=== PATIENT | female | born 1960 | race Caucasian/White ===

== ENCOUNTER 2018-01-11 06:52 | Emergency (ER) | payer MEDICAID ==
[~2018-01-11] VITALS: Ht 152.4 cm; Wt 79.8 kg
[2018-01-11] MEDS ORDERED: DEXAMETHASONE 4 MG TABLET ONE (07:23)
[2018-01-11] MEDS ORDERED: DEXAMETHASONE 4 MG TABLET PO ONE (07:30)
[2018-01-11] MEDS ORDERED: HYDROcodone/APAP 5/325 TABLET ONE (08:42)
[2018-01-11] MEDS ORDERED: HYDROcodone/APAP 5/325 TABLET PO ONE (09:00)
[2018-01-11 10:25] VITALS: BP 215/93
== END 2018-01-11 10:27 | disposition home or self-care (01) ==
LOC: ED 08:22
DX: S22.31XA Fracture of one rib, right side, initial encounter for closed fracture (principal); R07.89 Other chest pain; Z87.891 Personal history of nicotine dependence; X58.XXXA Exposure to other specified factors, initial encounter; Y93.89 Activity, other specified; Y92.89 Other specified places as the place of occurrence of the external cause; Y99.8 Other external cause status
CPT/HCPCS: 71046; 99284

== ENCOUNTER 2018-01-17 08:00 | Emergency (ER) | payer MEDICAID ==
[~2018-01-17] VITALS: Ht 152.4 cm; Wt 75.7 kg
[2018-01-17] MEDS ORDERED: INSU100V8 SQ (08:16)
[2018-01-17] MEDS ORDERED: ATEN50TA41 PO (08:16)
[2018-01-17] MEDS ORDERED: CLON0.3T4 PO (08:16)
[2018-01-17] MEDS ORDERED: GABA600T2 PO (08:17)
[2018-01-17] MEDS ORDERED: LEVE500T53 PO (08:17)
[2018-01-17] MEDS ORDERED: ONDANSETRON ODT 4 MG ONE (08:38)
[2018-01-17] MEDS ORDERED: OXYcodone/APAP 5/325MG TABLET PO ONE (09:00)
[2018-01-17] MEDS ORDERED: ONDANSETRON ODT 4 MG PO ONE (09:00)
[2018-01-17 09:05] LABS: BASOPHILS # (AUTO) 0.03 x10^3/uL (0-0.1); BASOPHILS % (AUTO) 0 % (0-1); EOSINOPHILS # (AUTO) 0.03 x10^3/uL (0-0.4); EOSINOPHILS % (AUTO) 0 % (1-7); LYMPHOCYTES # (AUTO) 2.63 x10^3/uL (1-3.4); LYMPHOCYTES % (AUTO) 22 % (22-44); MD NO; MEAN CORPUSCULAR HEMOGLOBIN 32.9 pg (27.0-34.8); MEAN CORPUSCULAR HGB CONC 34.1 g/dL (32.4-35.8); MEAN CORPUSCULAR VOLUME 96.4 fL (80-100); MEAN PLATELET VOLUME 8.7 fL (7.4-10.4); MONOCYTES # (AUTO) 0.45 x10^3/uL (0.2-0.8); MONOCYTES % (AUTO) 4 % (2-9); NEUTROPHILS # (AUTO) 9.06 x10^3/uL (1.8-6.8); NEUTROPHILS % (AUTO) 74 % (42-75); PLATELET COUNT 236 x10^3/uL (130-400); RED BLOOD COUNT 4.51 x10^6/uL (3.82-5.3); RED CELL DISTRIBUTION WIDTH 13.1 % (9.6-15.2)
[2018-01-17 09:12] LABS: ALBUMIN 3.7 g/dL (3.4-5.0); ANION GAP 11 mmol/L (5-15); CALCIUM 9.4 mg/dL (8.5-10.1); CHLORIDE 101 mmol/L (98-107); CREATININE 0.97 mg/dL (0.55-1.02)
[2018-01-17] MEDS ORDERED: OXYcodone/APAP 5/325MG TABLET ONE (09:13)
[2018-01-17] MEDS ORDERED: PROMETHAZINE 25 MG/ML, 1ML IM ONE (10:30)
[2018-01-17] MEDS ORDERED: PROMETHAZINE 25 MG/ML, 1ML ONE (10:45)
[2018-01-17 11:40] VITALS: BP 118/65
== END 2018-01-17 11:42 | disposition home or self-care (01) ==
LOC: ED 09:07
DX: G43.C0 Periodic headache syndromes in child or adult, not intractable (principal); I10 Essential (primary) hypertension
CPT/HCPCS: 36415; 70450; 80048; 82040; 85025; 93005; 96372; 99285; J2550; Q0162

== ENCOUNTER 2018-01-26 03:18 | Observation (INO) | payer MEDICAID ==
[~2018-01-26] VITALS: Ht 152.4 cm; Wt 80.5 kg
[~2018-01-26 03:18] MED LIST: ATEN50TA41 PO; CLON0.3T4 PO; GABA600T2 PO; INSU100V8 SQ; LEVE500T53 PO
[2018-01-26] MEDS ORDERED: ACETAMINOPHEN 325 MG TABLET ONE (03:43)
[2018-01-26 03:52] LABS: BASOPHILS # (AUTO) 0.03 x10^3/uL (0-0.1); BASOPHILS % (AUTO) 1 % (0-1); EOSINOPHILS % (AUTO) 3 % (1-7); LYMPHOCYTES # (AUTO) 2.02 x10^3/uL (1-3.4); LYMPHOCYTES % (AUTO) 30 % (22-44); MD NO; MEAN CORPUSCULAR HEMOGLOBIN 32.4 pg (27.0-34.8); MEAN CORPUSCULAR HGB CONC 33.7 g/dL (32.4-35.8); MEAN CORPUSCULAR VOLUME 96.3 fL (80-100); MEAN PLATELET VOLUME 8.8 fL (7.4-10.4); MONOCYTES # (AUTO) 0.83 x10^3/uL (0.2-0.8); MONOCYTES % (AUTO) 12 % (2-9); NEUTROPHILS # (AUTO) 3.75 x10^3/uL (1.8-6.8); NEUTROPHILS % (AUTO) 55 % (42-75); PLATELET COUNT 179 x10^3/uL (130-400); RED BLOOD COUNT 4.17 x10^6/uL (3.82-5.3); RED CELL DISTRIBUTION WIDTH 13.6 % (9.6-15.2)
[2018-01-26 04:00] LABS: ALBUMIN 3.3 g/dL (3.4-5.0); ANION GAP 10 mmol/L (5-15); CALCIUM 9.1 mg/dL (8.5-10.1); CHLORIDE 103 mmol/L (98-107); CREATININE 0.78 mg/dL (0.55-1.02)
[2018-01-26] MEDS ORDERED: ACETAMINOPHEN 325 MG TABLET PO ONE (04:00)
[2018-01-26] MEDS ORDERED: NITROGLYCERIN SINGLE TAB 0.4 MG SL PRN (04:00)
[2018-01-26 04:04] LABS: TROPONIN I < 0.015 ng/mL (0.000-0.045)
[2018-01-26] MEDS ORDERED: ONDANSETRON ODT 4 MG ONE (04:17)
[2018-01-26] MEDS ORDERED: ONDANSETRON ODT 4 MG PO ONE (04:30)
[2018-01-26] MEDS ORDERED: SODIUM CHLORIDE 0.9% 1,000 ML IV SCH (05:10)
[2018-01-26] MEDS ORDERED: INSULIN GLARGINE 100 UNITS/ML, PEN SQ-INSULIN SCH (05:30)
[2018-01-26] MEDS ORDERED: ONDANSETRON ODT 4 MG PO PRN (05:30)
[2018-01-26] MEDS ORDERED: POLYETHYLENE GLYCOL 17 GM PACKET PO PRN (05:30)
[2018-01-26] MEDS ORDERED: hydrALAzine 20 MG/ML, 1ML IVPush PRN (05:30)
[2018-01-26] MEDS ORDERED: ONDANSETRON 2MG/ML, 2ML IVPush PRN (05:30)
[2018-01-26] MEDS ORDERED: ACETAMINOPHEN 325 MG TABLET PO PRN (05:30)
[2018-01-26 05:36] VITALS: BP 147/86
[2018-01-26] MEDS ORDERED: PROMETHAZINE 25 MG/ML, 1ML IM PRN (07:00)
[2018-01-26] MEDS ORDERED: HYDROcodone/APAP 5/325 TABLET PO ONE (07:00)
[2018-01-26 07:28] VITALS: BP 164/94
[2018-01-26] MEDS ORDERED: REGADENOSON 0.4 MG/5 ML SYRINGE ONE (07:34)
[2018-01-26 08:33] LABS: TROPONIN I < 0.015 ng/mL (0.000-0.045)
[2018-01-26] MEDS ORDERED: GABAPENTIN 300 MG CAPSULE PO SCH (09:00)
[2018-01-26] MEDS ORDERED: ATENOLOL 50 MG TABLET PO SCH (09:00)
[2018-01-26] MEDS ORDERED: LEVETIRACETAM 500 MG TABLET PO SCH (09:00)
[2018-01-26] MEDS: INSULIN LISPRO 100 UNITS/ML, PEN SQ-INSULIN SCH ×2 (10:05→12:16)
[2018-01-26 14:00] VITALS: BP 112/71
[2018-01-26 14:43] LABS: HEMOGLOBIN A1C 9.9 % (4.2-6.3)
== END 2018-01-26 14:55 | disposition left against medical advice (07) ==
LOC: ED 03:44 → EDIP 04:34 → INTOOBSV 04:34 → 5SO 05:27
PROVIDERS: ADMIT Hospitalist; ATTEND Hospitalist
DX: R07.89 Other chest pain (principal); R06.09 Other forms of dyspnea; E11.40 Type 2 diabetes mellitus with diabetic neuropathy, unspecified; E11.65 Type 2 diabetes mellitus with hyperglycemia; I11.9 Hypertensive heart disease without heart failure; G40.909 Epilepsy, unspecified, not intractable, without status epilepticus; Z79.4 Long term (current) use of insulin; Z87.891 Personal history of nicotine dependence; Z86.73 Personal history of transient ischemic attack (TIA), and cerebral infarction without residual deficits; Z86.711 Personal history of pulmonary embolism; Z90.710 Acquired absence of both cervix and uterus; Z83.3 Family history of diabetes mellitus; Z82.49 Family history of ischemic heart disease and other diseases of the circulatory system
CPT/HCPCS: 36415; 71045; 78452; 80048; 82040; 82962; 83036; 83880; 84484; 85025; 85379; 93005; 93017; 96372; 99284; A9502; C9898; G0378; J1815; J2550; J2785; J7030; Q0162

== ENCOUNTER 2018-03-26 09:06 | Observation (INO) | payer MEDICAID, OTHER ==
[~2018-03-26] VITALS: Ht 152.4 cm; Wt 73.3 kg
[~2018-03-26 09:06] MED LIST changes: -GABA600T2 PO; +GABA600T7 PO
[2018-03-26] MEDS ORDERED: HYDROmorphone 1 MG/ML, 1ML IV ONE ×2 (09:30→11:30)
--- NOTE | 2018-03-26 09:40 | NUR ---
PT PRESENTED TO ED WITH HEADACHE SINE 2:00 THIS AM. PT A&OX4. PT WITH HX OF MULTIPLE ANEURYSMS.PT PLACED IN ROOM AND PLACED ON BP AND CONT. PULSE OXIMETER. ASSESSMENT COMPLETED. PAPERHANGER AND PAINTER AT BEDSIDE TO TAKE PT TO CT SCAN. PT STATED SHE IS ALLERGIC TO IODINE. MD AWARE AND PT THEN TAKEN TO CT SCAN WITHOUT IV CONTRAST.
--- NOTE | 2018-03-26 09:47 | NUR ---
Pt taken to CT.
--- NOTE | 2018-03-26 10:33 | NUR ---
UNABLE TO PLACE IV X 2. Addendum: 03/26/18 at 1120 by EKING md informed of high bp.
[2018-03-26] MEDS ORDERED: HYDROmorphone 2 MG/ML, 1ML ONE ×2 (11:11→14:35)
--- NOTE | 2018-03-26 11:18 | NUR ---
PT MEDICATED PER ORDER.
--- NOTE | 2018-03-26 11:21 | NUR ---
called MRI letting them know that pt is ready. He stated that he will be over in a bit.
--- NOTE | 2018-03-26 11:38 | NUR ---
PT VOMITED, CHARGE NURSE INFORMED .
[2018-03-26] MEDS ORDERED: METOPROLOL 1 MG/ML, 5ML ONE (11:44)
[2018-03-26] MEDS ORDERED: PROMETHAZINE 25 MG/ML, 1ML ONE (11:44)
--- NOTE | 2018-03-26 11:53 | NUR ---
PT MEDICATED PER ORDER.
[2018-03-26] MEDS ORDERED: PROMETHAZINE 25 MG/ML, 1ML IM ONE (12:00)
[2018-03-26] MEDS ORDERED: METOPROLOL 1 MG/ML, 5ML IVPush ONE (12:00)
--- NOTE | 2018-03-26 12:15 | NUR ---
Pt taken to MRI.
[2018-03-26 12:22] LABS: ALBUMIN 3.7 g/dL (3.4-5.0); ANION GAP 12 mmol/L (5-15); CALCIUM 9.8 mg/dL (8.5-10.1); CHLORIDE 105 mmol/L (98-107)
[2018-03-26 12:26] LABS: TROPONIN I < 0.015 ng/mL (0.000-0.045)
--- NOTE | 2018-03-26 12:44 | NUR ---
PT IS BACK FROM MRI. PT IS ALERT, ORIENTED, WITH NAD. PT IS CONNECTED TO THE MONITOR. CALL LIGHT WITHIN REACH.
[2018-03-26 12:45] LABS: MEAN CORPUSCULAR VOLUME 93.9 fL (80-100); MEAN PLATELET VOLUME 8.2 fL (7.4-10.4); PLATELET COUNT 232 x10^3/uL (130-400); RED BLOOD COUNT 4.82 x10^6/uL (3.82-5.3); RED CELL DISTRIBUTION WIDTH 13.8 % (9.6-15.2)
[2018-03-26 12:49] LABS: BASOPHILS % (AUTO) 2 % (0-1); EOSINOPHILS # (AUTO) 0.04 x10^3/uL (0-0.4); EOSINOPHILS % (AUTO) 0 % (1-7); LYMPHOCYTES # (AUTO) 3.26 x10^3/uL (1-3.4); LYMPHOCYTES % (AUTO) 30 % (22-44); MD SCAN; MONOCYTES % (AUTO) 13 % (2-9); NEUTROPHILS # (AUTO) 5.81 x10^3/uL (1.8-6.8); NEUTROPHILS % (AUTO) 54 % (42-75)
--- NOTE | 2018-03-26 13:18 | NUR ---
Hospitalist at bedside.
[2018-03-26] MEDS ORDERED: hydrALAzine 20 MG/ML, 1ML IVPush PRN (14:00)
[2018-03-26] MEDS ORDERED: POLYETHYLENE GLYCOL 17 GM PACKET PO PRN (14:00)
[2018-03-26] MEDS ORDERED: BISACODYL 10 MG SUPP PR PRN (14:00)
[2018-03-26] MEDS ORDERED: SUMATRIPTAN 25 MG TABLET PO PRN (14:00)
[2018-03-26] MEDS ORDERED: BUTALB/APAP/CAFFEINE 50MG/325MG/40MG PO PRN (14:00)
[2018-03-26] MEDS ORDERED: LABETALOL 5MG/ML, 20ML IVPush PRN (14:00)
[2018-03-26] MEDS ORDERED: DOCUSATE 100 MG CAPSULE PO PRN (14:00)
[2018-03-26] MEDS ORDERED: DEXTROSE 50%, 50ML SYRINGE IVPush PRN (14:00)
[2018-03-26] MEDS ORDERED: ACETAMINOPHEN 325 MG TABLET PO PRN (14:00)
[2018-03-26] MEDS ORDERED: ONDANSETRON ODT 4 MG PO PRN (14:00)
[2018-03-26] MEDS ORDERED: NS + 20MEQ KCL 1,000 ML IV SCH (14:00)
[2018-03-26] MEDS ORDERED: LIDODERM 5% PATCH TD PRN (14:00)
[2018-03-26] MEDS ORDERED: PERMETHRIN CRM 5%, 60GM TP SCH (14:00)
[2018-03-26] MEDS ORDERED: ENALAPRILAT 1.25 MG/ML, 2ML IVPush PRN (14:00)
[2018-03-26] MEDS ORDERED: DEXTROSE 4 GM TAB.CHEW PO PRN (14:00)
[2018-03-26] MEDS ORDERED: GLUCAGON 1 MG IM PRN (14:00)
[2018-03-26] MEDS ORDERED: ONDANSETRON 2MG/ML, 2ML IVPush PRN (14:00)
--- NOTE | 2018-03-26 14:25 | NUR ---
Pt is sitting in bed, picking of her scabs and throwing them on the floor. Pt is alert, oriented, with NAD. Pt is connected to the monitor. Call light within reach.
[2018-03-26] MEDS ORDERED: VALPROATE SODIUM 100 MG/ML, 5ML IV ONE (14:30)
[2018-03-26 14:38] LABS: HEMOGLOBIN A1C 10.2 % (4.2-6.3)
[2018-03-26] MEDS ORDERED: NS + 20MEQ KCL 1,000 ML IV ONE (14:46)
--- NOTE | 2018-03-26 15:03 | NUR ---
ASSUMED CARE OF PT WHILE PRIMARY RN ON LUNCH. PT AWAITING HOSPITAL BED. PT ON CONT. 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
--- NOTE | 2018-03-26 16:10 | NUR ---
REPORT GIVEN TO FABIO DEAL.
[2018-03-26 17:22] VITALS: BP 153/81
[2018-03-26 17:39] VITALS: BP 151/97
[2018-03-26] MEDS: GABAPENTIN 300 MG CAPSULE PO SCH ×2 (17:48→20:55)
[2018-03-26] MEDS ORDERED: VALPROATE SODIUM 1,000 MG in SODIUM CHLORIDE 0.9% 100 ML IV ONE (18:00)
[2018-03-26] MEDS: INSULIN LISPRO 100 UNITS/ML, PEN SQ-INSULIN SCH ×2 (19:01→21:46)
[2018-03-26 19:27] VITALS: BP 154/92
[2018-03-26] MEDS: BUTALB/APAP/CAFFEINE 50MG/325MG/40MG PO PRN (20:55)
[2018-03-26] MEDS: LEVETIRACETAM 500 MG TABLET PO SCH (20:55)
[2018-03-26] MEDS: ATENOLOL 50 MG TABLET PO SCH (20:56)
[2018-03-26] MEDS ORDERED: INSULIN GLARGINE 100 UNITS/ML, PEN SQ-INSULIN SCH (21:00)
[2018-03-26] MEDS: SODIUM CHLORIDE FLUSH 10ML SYR IVF SCH (21:46)
[2018-03-27 01:37] VITALS: BP 116/74
[2018-03-27] MEDS ORDERED: VALPROATE SODIUM 500 MG in DEXTROSE 5% 100 ML IV SCH (02:30)
[2018-03-27 04:36] LABS: AMPHETAMINE SCREEN, URINE Negative (Negative); BARBITURATE SCREEN, URINE Negative (Negative); BENZODIAZEPINE SCREEN, URINE Negative (Negative); CANNABINOID SCREEN, URINE Negative (Negative); COCAINE SCREEN, URINE Negative (Negative); METHADONE SCREEN, URINE Negative (Negative); OPIATE SCREEN, URINE Positive (Negative)
[2018-03-27] MEDS: BUTALB/APAP/CAFFEINE 50MG/325MG/40MG PO PRN ×2 (04:53→09:05)
[2018-03-27 07:39] VITALS: BP 145/83
[2018-03-27] MEDS ORDERED: CLON0.3T4 PO (08:50)
[2018-03-27] MEDS ORDERED: ATEN50TA41 PO (08:50)
[2018-03-27] MEDS: LEVETIRACETAM 500 MG TABLET PO SCH (08:59)
[2018-03-27] MEDS: GABAPENTIN 300 MG CAPSULE PO SCH (08:59)
[2018-03-27] MEDS: ATENOLOL 50 MG TABLET PO SCH (09:00)
[2018-03-27] MEDS: INSULIN LISPRO 100 UNITS/ML, PEN SQ-INSULIN SCH (09:03)
[2018-03-27] MEDS: SODIUM CHLORIDE FLUSH 10ML SYR IVF SCH (09:03)
== END 2018-03-27 18:27 | disposition home or self-care (01) ==
LOC: ED 09:32 → INTOOBSV 14:15 → EDIP 14:15 → 4EST 17:20
PROVIDERS: ADMIT Hospitalist; ATTEND Hospitalist
DX: R51 Headache (principal); I11.9 Hypertensive heart disease without heart failure; I16.0 Hypertensive urgency; E87.6 Hypokalemia; E11.65 Type 2 diabetes mellitus with hyperglycemia; G40.909 Epilepsy, unspecified, not intractable, without status epilepticus; I67.1 Cerebral aneurysm, nonruptured; F17.210 Nicotine dependence, cigarettes, uncomplicated; Z79.4 Long term (current) use of insulin; Z82.49 Family history of ischemic heart disease and other diseases of the circulatory system; Z86.73 Personal history of transient ischemic attack (TIA), and cerebral infarction without residual deficits; Z91.19 Patient's noncompliance with other medical treatment and regimen; Z59.0 Homelessness; Z83.3 Family history of diabetes mellitus
CPT/HCPCS: 36415; 70450; 70544; 71045; 80048; 80307; 82040; 82962; 83036; 84484; 85025; 93005; 96365; 96366; 96367; 96372; 96375; 96376; 99284; G0378; J1170; J1815; J2405; J2550; J3480

== ENCOUNTER 2018-04-20 23:52 | Emergency (ER) | payer SELFPAY ==
[~2018-04-20] VITALS: Ht 152.4 cm; Wt 72.0 kg
[2018-04-21] MEDS ORDERED: SODIUM CHLORIDE FLUSH 10ML SYR IVF ONE (00:30)
--- NOTE | 2018-04-21 00:33 | NUR ---
BREAK RN: Report received from primary RN, Rose. Pt to imaging at this time.
[2018-04-21 00:36] LABS: MICROSCOPIC AUTO
[2018-04-21 00:43] LABS: CULTURE INDICATED? NO
--- NOTE | 2018-04-21 00:56 | NUR ---
ct pending lab/creatine
--- NOTE | 2018-04-21 01:15 | NUR ---
ct pending iv and meds.
[2018-04-21 02:28] LABS: ALANINE AMINOTRANSFERASE 43 U/L (12-78); ALBUMIN 3.4 g/dL (3.4-5.0); ANION GAP 9 mmol/L (5-15); CALCIUM 8.6 mg/dL (8.5-10.1); CHLORIDE 103 mmol/L (98-107); CREATININE 0.72 mg/dL (0.55-1.02)
[2018-04-21] MEDS ORDERED: hydrALAzine 20 MG/ML, 1ML IV ONE (02:30)
--- NOTE | 2018-04-21 02:31 | NUR ---
PT REMEDICATED FOR HTN. PT TO CT
[2018-04-21 02:32] LABS: ALKALINE PHOSPHATASE 387 U/L (45-117); BILIRUBIN,TOTAL 0.7 mg/dL (0.2-1.0); TOTAL PROTEIN 7.4 g/dL (6.4-8.2); TROPONIN I < 0.015 ng/mL (0.000-0.045)
[2018-04-21 02:47] LABS: INTERNATIONAL NORMALIZED RATIO 1.06 (0.93-1.1); PROTHROMBIN TIME 11.2 Seconds (9.6-11.5)
[2018-04-21 03:09] LABS: BASOPHILS # (AUTO) 0.05 x10^3/uL (0-0.1); BASOPHILS % (AUTO) 1 % (0-1); EOSINOPHILS # (AUTO) 0.15 x10^3/uL (0-0.4); EOSINOPHILS % (AUTO) 2 % (1-7); LYMPHOCYTES # (AUTO) 1.65 x10^3/uL (1-3.4); LYMPHOCYTES % (AUTO) 22 % (22-44); MD SCAN; MEAN CORPUSCULAR HEMOGLOBIN 31.3 pg (27.0-34.8); MEAN CORPUSCULAR HGB CONC 33.6 g/dL (32.4-35.8); MEAN CORPUSCULAR VOLUME 93.2 fL (80-100); MEAN PLATELET VOLUME 7.9 fL (7.4-10.4); MONOCYTES % (AUTO) 12 % (2-9); NEUTROPHILS % (AUTO) 64 % (42-75); PLATELET COUNT 173 x10^3/uL (130-400); RED BLOOD COUNT 4.37 x10^6/uL (3.82-5.3); RED CELL DISTRIBUTION WIDTH 13.4 % (9.6-15.2)
[2018-04-21 03:23] VITALS: BP 157/81
--- NOTE | 2018-04-21 03:23 | NUR ---
BP IMPROVED. PT TO BE DISCHARGED
--- NOTE | 2018-04-21 03:43 | NUR ---
Patient given discharge instructions and they have confirmed that they understand the instructions. Patient ambulatory with steady gait.
== END 2018-04-21 03:46 | disposition home or self-care (01) ==
LOC: ED 23:59
DX: R10.84 Generalized abdominal pain (principal); I10 Essential (primary) hypertension; R00.2 Palpitations; R11.2 Nausea with vomiting, unspecified; E11.9 Type 2 diabetes mellitus without complications; F17.200 Nicotine dependence, unspecified, uncomplicated; G40.909 Epilepsy, unspecified, not intractable, without status epilepticus; Z72.9 Problem related to lifestyle, unspecified; Z90.710 Acquired absence of both cervix and uterus; Z90.49 Acquired absence of other specified parts of digestive tract
CPT/HCPCS: 36415; 71046; 74176; 80053; 81001; 83690; 83880; 84484; 85025; 85610; 85730; 93005; 99284; Q0177

== ENCOUNTER 2018-04-24 10:45 | Emergency (ER) | payer SELFPAY ==
[~2018-04-24] VITALS: Ht 152.4 cm; Wt 73.0 kg
--- NOTE | 2018-04-24 10:55 | NUR ---
PT REPORT FROM TOYIN CASIANO. PT CARE TO BE ASSUMED. PT A&OX4, RESP EVEN & UNLABORED, SPEECH CLEAR, TALKATIVE. SKIN: MULT SCABBED AREAS (POSSIBLE BUG BITES) TO CHEST, UPPER BACK, ALL EXTREMETIES BILAT - STARTED "ABOUT 2-1/2 WEEKS". STAYED AT COUSIN'S HOUSE IN [place]. STATED "BITES CAME FROM [place]". DENIES DYSPNEA, CP, LIGHTHEADEDNESS, DIZZINESS, VOMITING, DIARRHEA, CONSTIPATION. + NAUSEA - WORSENS W/ WALKING. LAST ORAL INTAKE: 1999 LAC NOC. LAST BM: YESTERDAY
[2018-04-24] MEDS ORDERED: DIPHENHYDRAMINE 50 MG/ML, 1ML IM ONE (12:00)
[2018-04-24] MEDS ORDERED: DIPHENHYDRAMINE 50 MG/ML, 1ML ONE (12:08)
--- NOTE | 2018-04-24 12:13 | NUR ---
PT NOTIFIED OF BENADRYL ORDER. PT STATES "BENADRYL MAKES ME ANTCY. I'D RATHER HAVE ATARAX" DISCUSSED BENADRYL DOSE. PT WOULD LIKE ATARAX; WILL INFORM ERP
[2018-04-24 12:36] LABS: BASOPHILS # (AUTO) 0.03 x10^3/uL (0-0.1); BASOPHILS % (AUTO) 1 % (0-1); EOSINOPHILS # (AUTO) 0.08 x10^3/uL (0-0.4); EOSINOPHILS % (AUTO) 2 % (1-7); LYMPHOCYTES # (AUTO) 1.81 x10^3/uL (1-3.4); LYMPHOCYTES % (AUTO) 32 % (22-44); MD NO; MEAN CORPUSCULAR HGB CONC 33.7 g/dL (32.4-35.8); MEAN PLATELET VOLUME 7.9 fL (7.4-10.4); MONOCYTES # (AUTO) 0.56 x10^3/uL (0.2-0.8); MONOCYTES % (AUTO) 10 % (2-9); NEUTROPHILS # (AUTO) 3.27 x10^3/uL (1.8-6.8); NEUTROPHILS % (AUTO) 57 % (42-75); PLATELET COUNT 168 x10^3/uL (130-400); RED BLOOD COUNT 4.17 x10^6/uL (3.82-5.3); RED CELL DISTRIBUTION WIDTH 13.4 % (9.6-15.2)
[2018-04-24 12:40] LABS: ANION GAP 6 mmol/L (5-15); CHLORIDE 106 mmol/L (98-107); CREATININE 0.72 mg/dL (0.55-1.02)
[2018-04-24] MEDS ORDERED: hydrOXyzine 50MG TABLET ONE (12:51)
[2018-04-24] MEDS ORDERED: POTASSIUM CHLORIDE 20 MEQ TAB.ER.PRT ONE (12:51)
--- NOTE | 2018-04-24 12:59 | NUR ---
PT STATES SHE'LL BE RETURNING TO HER HOME ([place]) VIA [employer] BUS THIS WEEK - 7 DAY TRIP. REQUESTS REFILL: CLONIDINE, ATARAX, ATENOLOL. STATES SHE'LL RUN OUT BEFORE REACHING HOME. ERP WILL BE NOTIFIED.
[2018-04-24] MEDS ORDERED: POTASSIUM CHLORIDE 20 MEQ TAB.ER.PRT PO ONE (13:00)
[2018-04-24 13:01] VITALS: BP 210/122
== END 2018-04-24 12:34 | disposition home or self-care (01) ==
LOC: ED 12:06
DX: E11.65 Type 2 diabetes mellitus with hyperglycemia (principal); I10 Essential (primary) hypertension; Z76.0 Encounter for issue of repeat prescription; G40.909 Epilepsy, unspecified, not intractable, without status epilepticus
CPT/HCPCS: 36415; 80048; 85025; 99283; Q0177